=== PATIENT | female | born 1965 | race African-American/Black ===

== ENCOUNTER 2016-09-28 21:42 | Emergency (ER) | payer SELFPAY ==
[~2016-09-28] VITALS: Ht 162.6 cm; Wt 56.7 kg
[2016-09-28 22:05] LABS: BASO % 0 % (0-3); EOS % 2 % (0-3); HEMATOCRIT 29.1 % (36.0-47.0); HEMOGLOBIN 9.6 g/dL (12.0-15.5); LYMPH # 1.4 x10^3/uL (1.0-4.8); LYMPH % 17 % (24-48); MEAN CORPUSCULAR HEMOGLOBIN 29 pg (25-35); MEAN CORPUSCULAR HGB CONC 33 g/dL (31-37); MEAN CORPUSCULAR VOLUME 89 fL (79-100); MONO % 4 % (0-9); NEUT % 77 % (31-73); PLATELET COUNT 185 x10^3/uL (140-400); RED BLOOD COUNT 3.27 x10^6/uL (3.50-5.40); RED CELL DISTRIBUTION WIDTH 29.8 % (11.5-14.5)
[2016-09-28] MEDS ORDERED: levETIRAcetam 500 MG TABLET PO ONE (22:15)
[2016-09-28 22:20] LABS: CALCIUM 8.4 mg/dL (8.5-10.1); CREATININE 0.9 mg/dL (0.6-1.0); GFR 80.5
[2016-09-28 22:26] LABS: ALBUMIN 3.4 g/dL (3.4-5.0); TOTAL PROTEIN 6.9 g/dL (6.4-8.2)
[2016-09-28 22:43] LABS: BARBITURATES NEG (NEG); BENZODIAZEPINES POS (NEG); CANNABINOIDS NEG (NEG); COCAINE NEG (NEG); METHADONE NEG (NEG); OPIATES NEG (NEG); PHENCYCLIDINE NEG (NEG)
[2016-09-29] VITALS: BP 162/99
--- NOTE | 2016-09-29 00:17 | PHYS DOC ---
Past Medical History Past Medical History: Alcoholism, Anxiety, Seizure Past Surgical History: Alcohol Use: Heavy Drug Use: None Adult General Chief Complaint Chief Complaint: WITHDRAWL HPI HPI Patient is a 50 year old female with a history significant for anxiety and alcohol use presents to the ER today secondary to being transferred from the [facility] because they felt uncomfortable care for her because of her history of seizures. Patient reports that she was admitted to [facility] secondary to alcohol withdrawal type symptoms. Patient reports that after she was discharged from [facility] for further evaluation of her detox and alcohol use disorder. Patient reports that she was sent with a prescription for Librium. Patient reports that she takes Ativan for her anxiety disorder. Patient reports she does have a history of seizures for which she is on Keppra 1000 mg twice a day but that is at her home back in [facility]. Patient reports her last seizure was 2-3 months ago. Patient reports when she arrived to the [facility] she had a prescription for her Librium however it was not filled. It appears that secondary to her inability to get her medication filled, history of seizure disorder, not having her Keppra on hand the facility felt very uncomfortable care for her. They called EMS and they transferred here to the ER for further evaluation of a nonacute disorder. Patient is currently denying any symptomatology. Patient denies any fevers shakes chills nausea vomiting diarrhea cough cold runny nose. Patient denies any pre-ictal type symptoms. Patient denies any tremors. Patient reports she does feel slightly anxious but she feels that this is secondary to being sent away from the [facility]. Patient reports her last dose of Keppra was yesterday. She reports she did not take any Keppra on September 28. Patient reports she only takes 1000 mg twice a day. Patient reports prior to being released from [facility] she did not get a dose of Keppra. Patient reports she drinks 3-4 beers every day. Patient reports she generally goes to alcohol withdrawal when she stops drinking. Her symptoms she describes as tremors and shaking. Patient does not think that when she stops drinking she has seizures. Review of systems: Constitutional: Denies fever or chills Eyes: Denies change in visual acuity, redness, or eye pain HENT: Denies nasal congestion or sore throat All other review systems are negative except as documented in the history of present illness portion. Physical exam: Constitutional: Well developed, well nourished, no acute distress, non-toxic appearance. HENT: Normocephalic, atraumatic, bilateral external ears normal, Eyes: EOMI, conjunctiva normal, no discharge. Neck: Normal range of motion, no tenderness, supple, no stridor. Cardiovascular: Regular rate Lungs & Thorax: Bilateral breath sounds clear to auscultation no wheezing rales or rhonchi Abdomen: Bowel sounds normal, soft, no tenderness, Skin: Warm, dry, no erythema, no rash. Back: No tenderness, no CVA tenderness. Extremities: ROM intact, no edema. Neurologic: Alert and oriented X 3, normal motor function, normal sensory function, no focal deficits noted. Psychologic: Affect normal, judgement normal, mood normal. Patient's ER workup has been unremarkable. Patient's labs were normal. Patient' s alcohol level is 0. We have had the psychiatric assessment team assist us with possible placement for the patient for alcohol detox. Patient currently does not meet criteria for inpatient evaluation for alcohol detox. Patient be given a list of facilities for alcohol use disorder. Patient be discharged home in stable condition. Patient does have a prescription for Librium which she has been encouraged to fill. Assessment and plan This is a 50-year-old female who presents here today with the [facility] because they're concerned that she has a history of seizures and her inability to care for her. Patient has no acute issues at this time. Patient does not meet criteria for inpatient detox. Patient be discharged to home. Patient be given 1000 mg of Keppra in the ED upon arrival and will be given a second 1000 mg prior to discharge. She has been given 1 mg of IV Ativan to assist her with her anxiety. Current Medications Current Medications Current Medications Medications (Trade) Dose Ordered Sig/Stephany Start Time Stop Time Status Last Admin Dose Admin Levetiracetam (Keppra) 1,000 mg 1X ONCE 09/28/16 22:15 09/28/16 22:16 DC 09/28/16 22:12 1,000 MG Lorazepam (Ativan) 1 mg 1X ONCE 09/28/16 22:15 09/28/16 22:16 DC 09/28/16 22:12 1 MG Allergies Allergies Allergies Coded Allergies Type Severity Reaction Last Updated Verified Penicillins Allergy Unknown 09/28/16 Yes Current Patient Data Vital Signs Vital Signs Date Time Temp Pulse Resp B/P (MAP) Pulse Ox O2 Delivery O2 Flow Rate FiO2 09/28/16 21:42 98.6 96 18 108/96 (100) 100 Room Air 98.6 Lab Values Laboratory Tests Test 09/28/16 21:33 09/28/16 21:36 09/28/16 22:15 White Blood Count 8.0 x10^3/uL (4.0-11.0) Red Blood Count 3.27 x10^6/uL (3.50-5.40) L Hemoglobin 9.6 g/dL (12.0-15.5) L Hematocrit 29.1 % (36.0-47.0) L Mean Corpuscular Volume 89 fL (79-100) Mean Corpuscular Hemoglobin 29 pg (25-35) Mean Corpuscular Hemoglobin Concent 33 g/dL (31-37) Red Cell Distribution Width 29.8 % (11.5-14.5) H Platelet Count 185 x10^3/uL (140-400) Neutrophils (%) (Auto) 77 % (31-73) H Lymphocytes (%) (Auto) 17 % (24-48) L Monocytes (%) (Auto) 4 % (0-9) Eosinophils (%) (Auto) 2 % (0-3) Basophils (%) (Auto) 0 % (0-3) Neutrophils # (Auto) 6.2 x10^3uL (1.8-7.7) Lymphocytes # (Auto) 1.4 x10^3/uL (1.0-4.8) Monocytes # (Auto) 0.3 x10^3/uL (0.0-1.1) Eosinophils # (Auto) 0.1 x10^3/uL (0.0-0.7) Basophils # (Auto) 0.0 x10^3/uL (0.0-0.2) Platelet Estimate Pending Sodium Level 139 mmol/L (136-145) Potassium Level 3.0 mmol/L (3.5-5.1) L Chloride Level 101 mmol/L (98-107) Carbon Dioxide Level 30 mmol/L (21-32) Anion Gap 8 (6-14) Blood Urea Nitrogen 4 mg/dL (7-20) L Creatinine 0.9 mg/dL (0.6-1.0) Estimated GFR (Cockcroft-Gault) 80.5 BUN/Creatinine Ratio 4 (6-20) L Glucose Level 155 mg/dL (70-99) H Calcium Level 8.4 mg/dL (8.5-10.1) L Total Bilirubin 1.0 mg/dL (0.2-1.0) Aspartate Amino Transferase (AST) 37 U/L (15-37) Alanine Aminotransferase (ALT) 30 U/L (14-59) Alkaline Phosphatase 139 U/L (46-116) H Total Protein 6.9 g/dL (6.4-8.2) Albumin 3.4 g/dL (3.4-5.0) Albumin/Globulin Ratio 1.0 (1.0-1.7) Ethyl Alcohol Level < 10 mg/dL (0-10) POC Urine HCG, Qualitative Hcg negative (Negative) Urine Opiates Screen Neg (NEG) Urine Methadone Screen Neg (NEG) Urine Barbiturates Neg (NEG) Urine Phencyclidine Screen Neg (NEG) Urine Amphetamine/Methamphetamine Neg (NEG) Urine Benzodiazepines Screen Pos (NEG) Urine Cocaine Screen Neg (NEG) Urine Cannabinoids Screen Neg (NEG) Urine Ethyl Alcohol Neg (NEG) Laboratory Tests 09/28/16 21:33 Laboratory Tests 09/28/16 21:33 EKG EKG [] Radiology/Procedures Radiology/Procedures [] Course & Med Decision Making Course & Med Decision Making Pertinent Labs and Imaging studies reviewed. (See chart for details) [] Dragon Disclaimer Dragon Disclaimer This electronic medical record was generated, in whole or in part, using a voice recognition dictation system. Departure Departure Impression: Primary Impression: Alcohol use disorder Additional Impression: History of seizure Disposition: 01 HOME, SELF-CARE Condition: STABLE Referrals: NO PCP (PCP) Patient Instructions: Anxiety and Panic Attacks, Chronic Alcoholism, Seizure, Adult Additional Instructions: Please follow up with your family doctor as soon as possible when he return to [place]. Please call the resources that were given to you to assist her with her alcoholism. Please make sure you're compliant with her seizure medications. Please fill the prescription for Librium that was given to by [facility]. Problem Qualifiers LISA LEUNG MD Sep 29, 2016 00:17
[2016-09-29 02:32] LABS: MICROCYTOSIS SLIGHT; PLT ESTIMATE ADEQUATE (ADEQUATE); POLYCHROMASIA SLIGHT
== END 2016-09-29 00:20 | disposition home or self-care (01) ==
LOC: ER 21:42
DX: F10.20 Alcohol dependence, uncomplicated (principal); G40.909 Epilepsy, unspecified, not intractable, without status epilepticus; F41.9 Anxiety disorder, unspecified; Z88.0 Allergy status to penicillin; Z79.899 Other long term (current) drug therapy; Y90.0 Blood alcohol level of less than 20 mg/100 ml
CPT/HCPCS: 36415; 80053; 80307; 81025; 85025; 96374; 99284; G0480; J2060; G0479